=== PATIENT | female | born 1980 | race Caucasian/White ===

== ENCOUNTER 2021-11-11 08:55 | Emergency (ER) | payer MEDICAID ==
[~2021-11-11] VITALS: Ht 154.9 cm; Wt 65.8 kg
[~2021-11-11 08:55] MED LIST: ACET-10509 PO; PREN-234 PO
--- NOTE | 2021-11-11 09:11 | NUR ---
PT AMBULATED TO BED 12.
[2021-11-11 09:13] VITALS: BP 123/70
--- NOTE | 2021-11-11 09:17 | NUR ---
Daniel gautam in [place] - 11/11/21 at 1002 by [facility] PT AMBULATED TO [place] [id number]
--- NOTE | 2021-11-11 09:17 | NUR ---
PT AMBULATED TO ROOM 12
--- NOTE | 2021-11-11 09:30 | NUR ---
41YO FEMALE PT C/O SHARP UPPER ABDOMINAL PAIN X1 WEEK. PT STATES HAVING INITIAL R UPPER PAIN THAT NOW RADIATES TO LEFT SIDE. PT STATES OCCAISIONAL NAUSEA AND "BURNING" CHEST PAIN, DENIES BOTH AT THIS TIME. DENIES V/D OR FEVERS. PT ABDOMEN NON DISTENDED OR TENDER TO TOUCH. BOWEL SOUNDS ACTIVE X4. PT AAOX4 , ABDOMINAL PAIN AT 7/10. NKA NHX
--- NOTE | 2021-11-11 10:10 | NUR ---
DR VIGIL AT BEDSIDE FOR EVALUATION
--- NOTE | 2021-11-11 10:43 | NUR ---
XRAY AT BEDSIDE
[2021-11-11 10:44] LABS: BASOPHILS % (AUTO) 0.4 % (0.0-2.0); EOSINOPHILS # (AUTO) 0.1 K/uL (0-0.4); EOSINOPHILS % (AUTO) 0.7 % (0.0-4.0); HEMATOCRIT 37.7 % (36-48); HEMOGLOBIN 12.3 g/dL (12.0-16.0); LYMPHOCYTES # (AUTO) 2.1 K/uL (2.5-16.5); LYMPHOCYTES % (AUTO) 26.4 % (20.5-51.1); MEAN CORPUSCULAR HEMOGLOBIN 27 pg (27-31); MEAN CORPUSCULAR HGB CONC 33 g/dL (33-37); MEAN CORPUSCULAR VOLUME 81.5 fL (80-94); MONOCYTES # (AUTO) 0.4 K/uL (0.8-1.0); MONOCYTES % (AUTO) 4.6 % (1.7-9.3); NEUTROPHILS # (AUTO) 5.3 K/uL (1.8-7.7); NEUTROPHILS % (AUTO) 67.9 % (42.2-75.2); PLATELET COUNT (AUTO) 320 K/uL (140-450); RED BLOOD CELL COUNT(AUTO) 4.63 MIL/uL (4.20-5.40); RED CELL DISTRIBUTION WIDTH 15.1 % (11.6-13.7); WHITE BLOOD COUNT (AUTO) 7.8 K/uL (4.8-10.8)
[2021-11-11 10:55] LABS: APPEARANCE,URINE CLEAR (CLEAR); BILIRUBIN,URINE NEGATIVE (NEGATIVE); BLOOD, URINE 2+ (NEGATIVE); COLOR,URINE YELLOW (YELLOW); LEUKOCYTE ESTERASE ,URINE NEGATIVE (NEGATIVE); NITRITE, URINE POSITIVE (NEGATIVE); UGLUCOSE NEGATIVE (NEGATIVE)
[2021-11-11 11:10] LABS: ALBUMIN 3.8 g/dL (3.4-5.0); ANION GAP 10.8 (8-16); ASPARTATE AMINOTRANSFERASE 19 U/L (15-37); CARBON DIOXIDE 25.2 mmol/L (21-32); CHLORIDE 106 mmol/L (98-107); CREATININE 0.8 mg/dL (0.6-1.3); GFR ARICAN-AMERICAN 102 mL/min (>90); GLUCOSE 103 mg/dL (74-106); LIPASE 89 U/L (73-393); SODIUM SERUM 138 mmol/L (136-145); TOTAL BILIRUBIN 0.3 mg/dL (0.0-1.0); UREA NITROGEN, BLOOD 10 mg/dL (7-18)
[2021-11-11 11:42] LABS: WBC,URINE 0-5 /HPF (0-5)
[2021-11-11] MEDS ORDERED: cefTRIAXone 1,000 MG VIAL ONE (11:44)
[2021-11-11] MEDS ORDERED: CEPH-588 PO (12:39)
--- NOTE | 2021-11-11 13:05 | NUR ---
IV removed, catheter intact and site benign. Applied folded 4x4 gauze and tape to stop bleeding.
[2021-11-11 13:10] VITALS: BP 101/70
--- NOTE | 2021-11-11 13:10 | NUR ---
Patient discharged with v/s stable. Written and verbal after care instructions given and explained. Patient alert, oriented and verbalized understanding of instructions. Ambulatory with steady gait. All questions addressed prior to discharge. ID band removed. Patient advised to follow up with PMD. Rx of KEFLEX given. Opportunity to ask questions provided and answered.
--- NOTE | 2021-11-11 13:31 | NUR ---
The patient's care was reviewed and supervised by Elizabeth Feliciano, RN, RN.
== END 2021-11-11 13:10 | disposition home or self-care (01) ==
LOC: MED 08:55
DX: N39.0 Urinary tract infection, site not specified (principal)
CPT/HCPCS: 36415; 71045; 80053; 81001; 81025; 83690; 84484; 84703; 85025; 87086; 93005; 96365; 99285; J0696